=== PATIENT | female | born 1965 | race Hispanic/Latino ===

== ENCOUNTER 2017-09-23 12:05 | Emergency (ER) | payer OTHER ==
[~2017-09-23] VITALS: Ht 160 cm; Wt 103.6 kg
[2017-09-23] MEDS ORDERED: ALBUTEROL SULF 0.083% NEB SOLN 3 ML NEB NEB STA (12:50)
[2017-09-23] MEDS ORDERED: IPRATROPIUM BROMIDE 0.02% 2.5 ML NEB NEB ONE (13:00)
== END 2017-09-23 14:07 | disposition home or self-care (01) ==
LOC: FSED 12:05
DX: R05 Cough (principal); J20.9 Acute bronchitis, unspecified; J45.30 Mild persistent asthma, uncomplicated
CPT/HCPCS: 71046; 99283

== ENCOUNTER 2020-11-01 12:00 | Emergency (ER) | payer MEDICARE, OTHER ==
[~2020-11-01] VITALS: Ht 160 cm; Wt 101.7 kg
[2020-11-01] MEDS ORDERED: IPRAT-ALBUT 0.5-3 ML NEB (12:28)
[2020-11-01] MEDS ORDERED: CEFDINIR300 MG PO (12:28)
[2020-11-01] MEDS ORDERED: TESSALON PERLE100 MG PO (12:28)
[2020-11-01] MEDS ORDERED: PREDNISONE 20 MG TAB PO ONE (12:30)
[2020-11-01] MEDS ORDERED: PREDNISONE 20 MG TAB ONE (12:53)
== END 2020-11-01 12:56 | disposition home or self-care (01) ==
LOC: FSED 12:19
DX: R06.02 Shortness of breath (principal); R05 Cough; J40 Bronchitis, not specified as acute or chronic; J06.9 Acute upper respiratory infection, unspecified; F31.9 Bipolar disorder, unspecified; E03.9 Hypothyroidism, unspecified; F79 Unspecified intellectual disabilities
CPT/HCPCS: 71046; 99283; J7512